=== PATIENT | male | born 1960 | race Caucasian/White ===

== ENCOUNTER 2021-08-29 14:11 | Emergency (ER) | payer BC, SELFPAY ==
[2021-08-29 14:24] VITALS: BP 151/88; PULSE 60; RESP 16; TEMP 36.2; O2SAT 98
--- NOTE | 2021-08-29 14:32 | ED.EYEPROB ---
HPI - Eye Problem General Chief complaint: Eye Problems Stated complaint: Eye lid pain Time Seen by Provider: 08/29/21 14:24 Source: patient Mode of arrival: ambulatory Limitations: no limitations History of Present Illness HPI Narrative: Patient presents today complaining of a possible stye to his right upper eyelid x7 to 9 days. Denies pain or drainage. He has been applying warm compresses without relief. States he could not get into his [employer] for 4 weeks and wanted to come in for evaluation sooner. Related Data Home Medications Medication Instructions Recorded Confirmed atorvastatin 10 mg tablet tablet 08/29/21 carvedilol 12.5 mg tablet tablet 08/29/21 Allergies Allergy/AdvReac Type Severity Reaction Status Date / Time No Known Allergies Allergy Verified 08/29/21 14:23 Review of Systems Review of Systems: CONSTITUTIONAL: Denies body aches, fever, chills, or sweats. EYES: Denies visual changes, redness, or discharge.+ Stye right upper eyelid ENT: Denies rhinorrhea, congestion, sore throat, or otalgia. CARDIOVASCULAR: Denies chest pain, palpitations, or edema. RESPIRATORY: Denies cough or dyspnea. GASTROINTESTINAL: Denies abdominal pain, nausea, vomiting, or diarrhea. GENITOURINARY: Denies dysuria or hematuria. SKIN: Denies rash, itching, or wounds. MUSCULOSKELETAL: Denies back pain, joint pain, or myalgia. NEUROLOGIC: Denies headache, numbness, tingling, or weakness. PSYCH: Denies depression or anxiety. [facility] Past Medical History Medical History (Updated 08/29/21 @ 14:55 by Camryn Lindsey, [facility], ) History of skin cancer Comments At time of signature, I have reviewed and agree with nursing past medical, surgical, social and family history unless otherwise noted. Please see nursing chart for further information. There is no relevant family history pertinent to the presenting complaint Exam Narrative: GENERAL: Well-appearing, well-nourished, and in no acute distress. HEAD: Normocephalic, atraumatic. EYES: EOMI. No redness or drainage. Conjunctivae normal. Right upper eyelid has a ~3mm round fluctuant lesion in the center, close to the lash line. It is slightly darkened in color, but without erythema or induration surrounding. Nontender to palpation. The inner portion of the eyelid appears grossly normal. Lashes normal. ENT: Mucous membranes pink and moist. NECK: Normal AROM. CHEST: No respiratory distress. EXTREMITIES: Normal range of motion. No edema. SKIN: Warm, dry, no rash. Capillary refill normal. Normal skin turgor. NEURO: No focal deficits. Alert and oriented x3. Gait steady. PSYCH: Normal affect. No signs of depression or anxiety. Course Course Level of Care: Express Care Visit Vital Signs Vital signs: Vital Signs Temperature 97.2 F L 08/29/21 14:24 Pulse Rate 60 08/29/21 14:24 Respiratory Rate 16 08/29/21 14:24 Blood Pressure 151/88 H 08/29/21 14:24 Pulse Oximetry 98 08/29/21 14:24 Oxygen Delivery Room Air 08/29/21 14:24 Temperature 97.2 F L 08/29/21 14:24 Pulse Rate 60 08/29/21 14:24 Respiratory Rate 16 08/29/21 14:24 Blood Pressure 151/88 H 08/29/21 14:24 Pulse Oximetry 98 08/29/21 14:24 Oxygen Delivery Room Air 08/29/21 14:24 Reviewed. Pt has been instructed to follow up with his PCP regarding his elevated blood pressure today. MDM - Eye Problem Differential Diagnosis Differential diagnosis: Likely periorbital cellulitis and other (Cyst, abscess, stye) Critical Care Time Critical Care Time Critical Care Time: No Discharge Plan Discharge Clinical Impression: Cyst of right eyelid Qualifiers: Eyelid: upper Qualified Code(s): H02.821 - Cysts of right upper eyelid Patient Disposition: Home, Self-Care Condition: Stable Instructions: Cyst (ED) Additional Instructions: The bump on your eyelid is likely a cyst. Please use the eyedrops in case there is some bacterial component. As discussed, please
== END 2021-08-29 14:39 | disposition home or self-care (01) ==
PROVIDERS: Emergency Provider Nurse Practitioner
DX: H02.821 Cysts of right upper eyelid (principal); Z85.828 Personal history of other malignant neoplasm of skin
CPT/HCPCS: 99213; G0463